=== PATIENT | male | born 1960 | race Caucasian/White ===

== ENCOUNTER 2018-10-15 20:36 | Observation (INO) | payer BC, OTHER ==
--- NOTE | 2018-10-15 21:39 | PDOC.FPRHP ---
- History of Present Illness Chief Complaint: Chest Pain History of Present Illness: Mr Koch is a 58yo male with known CAD presents as [facility] transfer for chest pain that started this evening (1630) when we was moving some water bottles he had bought from the shopping cart to his car. He then drove to a different store down the road and the pain persisted. The pain persisted until he had been in the ED for 15 minutes. The pain felt like a sharp stabbing pain and some numbness and tingling in his L arm. Denies any known history of CHF. Dr. Flowers at [facility] and Dr. Aguilar are his cardiologists. He forgot to take his meds this morning because his pill box was empty. He reports he also thought his sugar may be getting high so he drank 3 bottles of water. BG is usually in the 130s-140s at home. He takes Metformin. ED Course: ASA at [facility] - Allergies/Adverse Reactions Allergies Allergy/AdvReac Type Severity Reaction Status Date / Time No Known Allergies Allergy Verified 10/16/18 00:58 - Home Medications Medication Instructions Recorded Confirmed Type Allopurinol 300 mg PO QAM 10/15/18 10/15/18 History Aspirin [Adult Aspirin] 81 mg PO BID 10/15/18 10/16/18 History Atorvastatin Calcium 80 mg PO HS 10/15/18 10/15/18 History Isosorbide Mononitrate [Imdur] 60 mg PO QAM 10/15/18 10/15/18 History Lisinopril 10 mg PO BID 10/15/18 10/15/18 History Metoprolol Tartrate 25 mg PO BID 10/15/18 10/15/18 History Ranolazine [Ranexa] 1,000 mg PO BID 10/15/18 10/15/18 History metFORMIN [Glucophage] 1,000 mg PO BID 10/15/18 10/15/18 History Fluticasone Propionate [Flonase 1 spray EA NARE DAILY 10/16/18 10/16/18 History Nasal Kennan] [place]-3 Fatty Acids/Fish Oil 2 cap PO BID 10/16/18 10/16/18 History [[place]aines 3 1,000 mg Softgel] glipiZIDE [Glipizide] 5 mg PO DAILY-AC 02/04/19 02/04/19 History - History PMHx: CAD, DMII, HLD, HTN, hx of testicular cancer (2002) s/p chemo/surgical resection, gout PSHx: Testicular, CABG x3 (2006), stent 2014 ([facility]), recent cath at [facility] (09/2018) FHx: Mother - cancer unknown type, Brother - cancer unknown type, Dad - CAD, cancer unknown type Social: Former smoker (quit using dip in July, 50 pk year smoking quit 1 year ago), no alcohol use, denies drug use. , grown children. 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 PCP: Dr. Frances at [facility] - Review of Systems General: reports: fatigue. denies: fever/chills Eyes: denies: eye pain, vision changes ENT: denies: nasal congestion, rhinorrhea Respiratory: denies: cough, shortness of breath Cardiovascular: reports: chest pain. denies: palpitation Gastrointestinal: denies: nausea, vomiting, abdominal pain Genitourinary: reports: other (denies hematuria). denies: dysuria Skin: denies: rashes, lesions Musculoskeletal: reports: tenderness, swelling (intermittently, equal on both sides), arthritis/arthralgias Neurological: reports: other (headaches on and off recently, improve with tylenol and rest, tingling in L arm). denies: weakness - Vital signs BP: 163/76 HR: 84 RR: 18 Tmax: 97.7 Pox: 94% on RA Wt: 123.38kg - Physical Exam Constitutional: NAD, awake, alert and oriented, well developed HEENT: normocephalic and atraumatic, conjunctiva clear, no scleral icterus, grossly normal hearing, MMM, oropharynx clear Neck: supple, trachea midline, no JVD, no bruits Heart: RRR, no murmurs/rubs/gallops, pulses present, no edema Lungs: CTAB, no respiratory distress, no wheezing Abdomen: soft, non-tender, bowel sounds present Musculoskeletal: normal structure, normal tone, ROM grossly normal Neurological: no focal deficit, other (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 Sensation to light touch intact b/l upper extremeties) Skin: capillary refill <2 seconds Psychiatric: normal mood and affect, good judgment and insight, intact recent and remote memory FMR H&P: Results - Labs Result Diagrams: 10/16/18 01:06 - EKG Interpretation EKG: incomplete right bundle branch block, ST, nonspecific ST wave abnormality, T waves, nonspecific T wave abnormality, [place] normal, MI interval 134 ms. QRS duration 102 ms. QT/QTc 406/441 ms. FMR H&P: A/P - Problem List (1) Exertional angina Current Visit: Yes Status: Acute Code(s): I20.8 - OTHER FORMS OF ANGINA PECTORIS (2) Coronary artery disease Current Visit: Yes Status: Acute Code(s): I25.10 - ATHSCL HEART DISEASE OF [place] CORONARY ARTERY W/O ANG PCTRS (3) DM type 2 (diabetes mellitus, type 2) Current Visit: Yes Status: Acute (4) Hx of CABG Current Visit: Yes Status: Acute (5) HTN (hypertension) Current Visit: Yes Status: Acute Code(s): I10 - ESSENTIAL (PRIMARY) HYPERTENSION (6) HLD (hyperlipidemia) Current Visit: Yes Status: Acute Code(s): E78.5 - HYPERLIPIDEMIA, UNSPECIFIED (7) Gout Current Visit: Yes Status: Acute Code(s): M10.9 - GOUT, UNSPECIFIED (8) Hx of testicular cancer Current Visit: Yes Status: Acute Code(s): Z85.47 - PERSONAL HISTORY OF MALIGNANT NEOPLASM OF TESTIS - Plan Mr Koch is a 58yo male with known hx of CAD s/p CABG x3 presenting with typical chest pain Typical chest pain - Initial troponin neg, continue to trend - EKG with known incomplete RBBB, no changes on repeat EKG - HEART score: 6 - Recent cath at [facility] on 09/26, unknown result. Requesting records - EKG for return of chest pain - FLP ordered - NPO for possible stress/cath, then HH - Admit to tele observation DMII - Continue home metformin - Mild SSI - ACHS accuchecks - DM diet - Hypoglycemic protocol CAD s/p CABG x3 - Manage as above HTN - Continue home Lisinopril, metoprolol HLD - Continue Atorvastatin Gout - Continue Allopurinol Hx of testicular cancer - S/p chemo/radiation/surgical Code Status: FULL DVT ppx: Lovenox FMR H&P: Upper Level - Pertinent history 58 yo M with known CAD presents to ED as transfer for typical chest pain. Started while moving groceries earlier tonight. +diaphoresis and tingling in L arm. Stabbing pain. Relieved with nitro. Also felt "woozy" like he does when his sugar is high. Forgot to take meds this morning. - Pertinent findings VS reviewed, CXR report read cardiomegaly, EKG reviewed and shows incomplete RBBB Gen: awake, alert, oriented, obese HEENT: NCAT, conjunctiva non-injected, MMM CV: RRR, no murmur noted RESP: CTAB ABD: soft, NTND EXT: no edema, posterior tibial and BL radial pulses 2+ - Plan Date/Time: 10/15/18 2138 58 yo M with known CAD here with typical chest pain 1. Typical chest pain: Trend trops, admit to tele obs. EKG with known RBBB, no changes on repeat to our ED. HEART score 6. NPO @ [facility] for possible stress vs. cath in a.m. Will request records. 2. T2DM: Continue metformin. Will check a1c. ACHS accuchecks and SSI. 3. CAD s/p CABG: Continue home meds. Holding B-ashely in a.m. 4. HTN: Home meds 5. HLD: Home meds. FLP in a.m. See Dr. Garvin' H&P for remainder of details. I, Karen Michael MD, PGY-3, have evaluated this patient and agree with findings/ plan as outlined by general intern resident. Pertinent changes/additions are listed here. Addendum - Attending - Attending Attestation Date/Time: 10/16/18 6542 I personally evaluated the patient and discussed the management with Dr. Garvin /Alec. I agree with the History, Examination, Assessment and Plan documented above with any addition or exceptions noted below. Patient with CAD and exertional angina here with elevating troponins but normal CKMB suggesting demand ischemia. Will monitor, obtain outside records related to recent cath amd echo, and likely cardiology consult depending on symptoms and clinical course. No need for stress testing since he recently had cath.
[2018-10-15] MEDS ORDERED: Metoprolol Tartrate 25 MG TAB ONE (22:06)
[2018-10-15] MEDS ORDERED: Lisinopril 10 MG TAB ONE (22:06)
[2018-10-15 22:23] LABS: CKMB 3.3 ng/mL (0-6.6)
[2018-10-16 01:24] VITALS: BMI 40.3
[2018-10-16 01:24] LABS: Hemoglobin A1c 6.6 % (4.0-6.0)
[2018-10-16] MEDS ORDERED: Dextrose 5% in Water 1,000 ML IV PRN (01:24)
[2018-10-16] MEDS ORDERED: Dextrose 50% Abboject 50 ML SYRINGE SLOW IVP PRN (01:24)
[2018-10-16] MEDS ORDERED: HumaLOG 300 UNITS/3 ML VIAL SC PRN (01:24)
[2018-10-16 01:35] LABS: Anion Gap 16 mmol/L (10-20); BUN (Urea Nitrogen) 22 mg/dL (8.4-25.7); Calc. Creatinine Clearance 165 mL/min (70-130); Carbon Dioxide 21 mmol/L (22-29); Chloride 106 mmol/L (98-107); Estimated GFR-MDRD 89; Glucose 115 mg/dL (70-105); Potassium 4.1 mmol/L (3.5-5.1); Sodium 139 mmol/L (136-145)
--- NOTE | 2018-10-16 05:50 | PDOC.FM ---
- Subjective Subjective: Pt resting in bed. Denies any acute events overnight. Denies any recent chest pain or SOB. Denies any fever or chills. Stephen any dizziness or lightheadness. Denies any numbness or tingling. Denies any vision changes. Denies any n/v/d/c. - Objective MAR Reviewed: Yes Vital Signs & Weight: Vital Signs (12 hours) Temp Pulse Resp BP Pulse Ox 10/16/18 03:50 75 18 132/84 98 10/16/18 00:28 98.4 F 65 18 130/69 98 Weight Weight 127.505 kg Result Diagrams: 10/16/18 06:39 10/16/18 05:44 EKG Reviewed by me: Yes (Sinus brenda this am) Phys Exam - Physical Examination Constitutional: NAD HEENT: PERRLA, moist MMs Neck: no nodes, supple, full ROM Respiratory: no wheezing, no rhonchi, clear to auscultation bilateral Cardiovascular: RRR, no significant murmur Gastrointestinal: soft, no distention, positive bowel sounds Musculoskeletal: no edema, pulses present Neurological: non-focal, normal sensation, moves all 4 limbs Lymphatic: no nodes Psychiatric: normal affect, A&O x 3 Skin: no rash, normal turgor, cap refill <2 seconds Dx/Plan (1) Coronary artery disease Code(s): I25.10 - ATHSCL HEART DISEASE OF [place] CORONARY ARTERY W/O ANG PCTRS Status: Acute (2) DM type 2 (diabetes mellitus, type 2) Status: Acute (3) HLD (hyperlipidemia) Code(s): E78.5 - HYPERLIPIDEMIA, UNSPECIFIED Status: Acute (4) HTN (hypertension) Code(s): I10 - ESSENTIAL (PRIMARY) HYPERTENSION Status: Acute (5) Hx of CABG Status: Acute (6) Hx of testicular cancer Code(s): Z85.47 - PERSONAL HISTORY OF MALIGNANT NEOPLASM OF TESTIS Status: Acute - Plan Plan: Typical chest pain - Troponin continue to trend upwards. Last trop above .3 -Started on Therapeutic lovenox - EKG with known incomplete RBBB, no changes on repeat EKG. Sinus brenda on monitor this AM -Will consult Cardiology- Dr. Erwin. follow recs. - Recent cath at [facility] on 09/26, unknown result. Requesting records - NPO for possible stress/cath, then HH - Admit to tele observation DMII - Continue home metformin - Mild SSI - ACHS accuchecks - DM diet - Hypoglycemic protocol CAD s/p CABG x3 - Manage as above HTN - Continue home Lisinopril, metoprolol HLD - Continue Atorvastatin Gout - Continue Allopurinol Hx of testicular cancer - S/p chemo/radiation/surgical Addendum - Attending - Attending Attestation Date/Time: 10/16/18 1123 I personally evaluated the patient and discussed the management with Dr. Jaramillo. I agree with the History, Examination, Assessment and Plan documented above with any addition or exceptions noted below. Starting th. lovenox with positive trops but suspect myocardial demand ischemia as opposed to true ACS. Will consult cardiology and obtain records this morning from his recent echo/cath. Further mgmt per those results and Cardiology recs. May be only a medication mgmt candidate based on his reported history of graft failure/stenosis. No active chest pain and no telemetry changes.
[2018-10-16 06:22] LABS: Anion Gap 16 mmol/L (10-20); BUN (Urea Nitrogen) 19 mg/dL (8.4-25.7); Calc. Creatinine Clearance 148 mL/min (70-130); Calcium 8.9 mg/dL (7.8-10.44); Carbon Dioxide 20 mmol/L (22-29); Cardiac Risk 5.9 (Less than 4.5); Chloride 106 mmol/L (98-107); Cholesterol 189 mg/dl (< 200 Desired); Estimated GFR-MDRD 79; Glucose 150 mg/dL (70-105); HDL Cholesterol 32 mg/dL (>60 Neg Risk); Potassium 4.3 mmol/L (3.5-5.1); Sodium 138 mmol/L (136-145); Triglycerides 418 mg/dL (Less than 150)
[2018-10-16] MEDS ORDERED: Enoxaparin Sodium 30 MG/0.3 ML SYRINGE SC SCH (06:45)
[2018-10-16] MEDS ORDERED: Enoxaparin Sodium 30 MG/0.3 ML SYRINGE IVP SCH (06:45)
[2018-10-16 06:54] LABS: #Eosinphils 0.2 thou/uL (0.0-0.7); #Lymphocytes 1.9 thou/uL (1.20-3.40); #Monocytes 0.7 thou/uL (0.11-0.59); #Neutrophils 4.6 thou/uL (1.40-6.50); %Basophils 0.1 % (0.0-1.0); %Eosinophils 3.1 % (0.0-10.0); %Lymphocytes 25.2 % (21.0-51.0); %Monocytes 9.6 % (0.0-10.0); Hemoglobin 13.6 g/dL (14.0-18.0); Mean Corpuscular HGB CONC 34.4 g/dL (32.0-36.0); Mean Corpuscular Hemoglobin 32.1 pg (27.0-31.0); Mean Corpuscular Volume 93.2 fL (78.0-98.0); Mean Platelet Volume 6.9 fL (7.4-10.4); Platelet Count 247 thou/uL (130-400); RBC Distribution Width 13.2 % (11.5-14.5); Red Blood Cell (RBC) Count 4.25 mill/uL (4.70-6.10); White Blood Cell (WBC) Count 7.5 thou/uL (4.8-10.8)
[2018-10-16 07:00] LABS: PTT 25.3 SEC (22.9-36.1); Prothrombin Time 13.2 SEC (12.0-14.7)
[2018-10-16 07:20] LABS: Troponin I 0.265 ng/mL (< 0.028)
[2018-10-16] MEDS ORDERED: Enoxaparin Sodium 60 MG/0.6 ML SYRINGE SC SCH ×2 (07:45→21:00)
[2018-10-16] MEDS ORDERED: Enoxaparin Sodium 40 MG/0.4 ML SYRINGE SC SCH (09:00)
[2018-10-16] MEDS: Lisinopril 10 MG TAB PO SCH ×2 (09:41→21:21)
[2018-10-16] MEDS: Enoxaparin Sodium 120 MG/0.8 ML SYRINGE SC SCH ×2 (09:42→21:21)
[2018-10-16] MEDS: Aspirin 81 mg Enteric Coated Tablet PO SCH (09:42)
[2018-10-16] MEDS: Allopurinol 300 MG TAB PO SCH (09:42)
[2018-10-16] MEDS: metFORMIN 500 MG TAB PO SCH ×2 (09:44→21:20)
[2018-10-16 13:38] LABS: Hemoglobin 13.5 g/dL (14.0-18.0); Platelet Count 286 thou/uL (130-400)
[2018-10-16] MEDS ORDERED: Atorvastatin Calcium 40 MG TAB PO SCH (21:00)
--- NOTE | 2018-10-17 00:51 | CON ---
DATE OF CONSULTATION: HISTORY OF PRESENT ILLNESS: Franc Koch is a 58-year-old white male, who apparently is usually followed by Dr. Aguilar; however, he recently underwent cardiac evaluation in [place] in [place]. In 2006, he underwent CABG. He apparently has undergone multiple nuclear scans by Dr. Aguilar and once underwent catheterization and some type of intervention. Then on September 14, 2018, he underwent treadmill testing in [place] in [place] for [employer]. He had [address]-segment depression in 5 leads which persisted for greater than 10 minutes. Then on September 20, 2018, he underwent cardiac catheterization via the right radial approach. There was a 50% left main. The proximal LAD had a 60% stenosis and was there was a total occlusion of the mid LAD. The first diagonal had a 20% stenosis. Circumflex had 40% proximal stenosis and the first obtuse marginal had a 20% stenosis. Right coronary artery was not engaged and was known to be totally occluded and apparently filled retrograde from both the LAD and the circumflex via collaterals. Bypass grafts revealed patent SALCEDO to the mid LAD which was a small diffusely diseased vessel. It was previously known that saphenous vein graft to distal right coronary artery and to the first obtuse marginal were occluded in 2016. It was felt best to continue to treat him medically. He has been doing well, but yesterday morning forgot to take his morning medicines. At approximately 4 p.m., he was lifting cases of water from his shopping cart into his car and started having chest pressure and pain. He rested in his car, but the pain continued. Ultimately went to the emergency room in [place]. He states that the total duration of the pain was approximately 30 minutes. He had mild shortness of breath. There is no diaphoresis, nausea, or vomiting. PAST MEDICAL HISTORY: Remarkable for coronary artery disease, diabetes, hypertension, hyperlipidemia, history of testicular cancer with chemo and surgical resection. PAST SURGICAL HISTORY: Orchidectomy, CABG x3 in 2006, stent [place] [address] Aguilar. MEDICATIONS: 1. Allopurinol 300 q.a.m. 2. Aspirin 81 b.i.d. 3. Atorvastatin 80 at bedtime. 4. Glipizide 5 mg daily. 5. Flonase nasal spray. 6. Isosorbide mononitrate 60 mg q.a.m. 7. Lisinopril 10 mg b.i.d. 8. Metformin 1000 mg b.i.d. 9. Metoprolol 25 mg b.i.d. 10. [place]-3 2000 mg b.i.d. 11. Ranexa 1000 mg b.i.d. ALLERGIES: NONE. SOCIAL HISTORY: Smoked 2 packs per day, but stopped 5 years ago. FAMILY HISTORY: Negative for coronary artery disease. REVIEW OF SYSTEMS: A 10-point review of systems is unremarkable. PHYSICAL EXAMINATION: VITAL SIGNS: Blood pressure 129/69, pulse of 73. HEENT: PERRL. NECK: Supple. CHEST: Clear. CARDIAC: S1 and S2 normal without any S3, S4, or murmurs. ABDOMEN: Obese. Normal bowel sounds. No tenderness. EXTREMITIES: Revealed no clubbing, cyanosis, or edema. NEUROLOGIC: Grossly intact. SKIN: Warm and dry. LABORATORY DATA: EKG revealed normal sinus rhythm with incomplete right bundle branch block, nonspecific ST and T wave changes. Hemoglobin 13.5, hematocrit 40.4, platelets 286,000. INR 1.0. Sodium 138, potassium 4.3, chloride 106, carbon dioxide 20, BUN 19, creatinine 0.9. Cholesterol 189, triglycerides 418, HDL 32 , LDL could not be determined. TSH is normal. Troponin I is 0.350. IMPRESSION: 1. Small [id number] myocardial infarction secondary to noncompliance with medications. From his known anatomy from catheterization 1 month ago, it would be understandable that he would have a prolonged chest discomfort if he was not taking his medications. We discussed the importance of taking medications as recommended. 2. Hypertension. 3. Diabetes. 4. Hypercholesterolemia-poor control with significantly elevated triglycerides. 5. Former smoker. PLAN: With Mr. Koch undergoing cardiac catheterization 1 month ago, which again revealed 2 of his 3 bypass grafts to be occluded and severe disease distal to the SALCEDO insertion, it would be understandable that if he did not take his medications, he would probably have chest pain. I would restart his medications as you are doing, have him ambulate in the halls. If he does not have any further significant symptoms that I feel he may be discharged tomorrow. Job ID: [id number] [facility]
--- NOTE | 2018-10-17 06:25 | PDOC.FM ---
- Subjective Subjective: Pt doing well this morning. Denies any acute events overnight. Denies any recent chest pain or SOB. Pt denies any dizziness, headaches or lightheadness. reports being ready to go home at this time - Objective MAR Reviewed: Yes Vital Signs & Weight: Vital Signs (12 hours) Temp Pulse Resp BP BP Pulse Ox 10/16/18 21:21 132/84 10/16/18 19:38 97.7 F 74 16 110/57 L 94 L Weight Weight 127.505 kg I&O: 10/15/18 10/16/18 10/17/18 06:59 06:59 06:59 Intake Total 850 Balance 850 Result Diagrams: 10/16/18 13:20 10/16/18 13:20 EKG Reviewed by me: Yes (Sinus at this time) Radiology Reviewed by me: Yes (No new imgaging) Phys Exam - Physical Examination Constitutional: NAD HEENT: PERRLA, moist MMs Neck: no nodes, supple, full ROM Respiratory: no wheezing, no rales, no rhonchi, clear to auscultation bilateral Hard to auscultate due to body habitus Cardiovascular: RRR, no significant murmur, no rub Gastrointestinal: soft, non-tender, no distention, positive bowel sounds Musculoskeletal: no edema, pulses present Neurological: non-focal, moves all 4 limbs Lymphatic: no nodes Psychiatric: normal affect Skin: no rash, normal turgor, cap refill <2 seconds Dx/Plan (1) NSTEMI (non-ST elevated myocardial infarction) Code(s): I21.4 - NON-ST ELEVATION (NSTEMI) MYOCARDIAL INFARCTION Status: Acute (2) Coronary artery disease Code(s): I25.10 - ATHSCL HEART DISEASE OF [place] CORONARY ARTERY W/O ANG PCTRS Status: Acute (3) DM type 2 (diabetes mellitus, type 2) Status: Acute (4) HLD (hyperlipidemia) Code(s): E78.5 - HYPERLIPIDEMIA, UNSPECIFIED Status: Acute (5) HTN (hypertension) Code(s): I10 - ESSENTIAL (PRIMARY) HYPERTENSION Status: Acute (6) Hx of CABG Status: Acute (7) Hx of testicular cancer Code(s): Z85.47 - PERSONAL HISTORY OF MALIGNANT NEOPLASM OF TESTIS Status: Acute - Plan Plan: NSTEMI - Slight bump in Troponin yesterday. Trended back down. Likely due to medication noncomplaince -Started on Therapeutic lovenox Cardiology- Dr. Erwin. follow recs. No new chest pain. Pt likely can go home. Counseled on medication compliance. - Recent cath at [facility] on 09/26, records recieved and reviewed. DMII - Continue home metformin - Mild SSI - ACHS accuchecks - DM diet - Hypoglycemic protocol CAD s/p CABG x3 - Manage as above HTN - Continue home Lisinopril, metoprolol HLD - Continue Atorvastatin Gout - Continue Allopurinol Hx of testicular cancer - S/p chemo/radiation/surgical Addendum - Attending - Attending Attestation Date/Time: 10/17/18 9809 I personally evaluated the patient and discussed the management with Dr. Jaramillo. I agree with the History, Examination, Assessment and Plan documented above with any addition or exceptions noted below. Patient with no continued chest pain. Diagnosis is mild NSTEMI due to medical noncompliance. Evaluated by cardiology and cleared for discharge if pain free. 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
[2018-10-17 08:13] VITALS: BP 141/73; TEMP 97.3
[2018-10-17] MEDS: Lisinopril 10 MG TAB PO SCH (10:15)
[2018-10-17] MEDS: Allopurinol 300 MG TAB PO SCH (10:15)
[2018-10-17] MEDS: metFORMIN 500 MG TAB PO SCH (10:15)
[2018-10-17] MEDS: Enoxaparin Sodium 120 MG/0.8 ML SYRINGE SC SCH (10:16)
[2018-10-17] MEDS: Aspirin 81 mg Enteric Coated Tablet PO SCH (10:16)
--- NOTE | 2018-10-18 11:55 | DIS ---
DATE OF ADMISSION: 10/15/2018 DATE OF DISCHARGE: 10/17/2018 RESIDENT: Hoang Jaramillo MD, PGY-2. CONSULTS: Include Cardiology, Dr. Tonny Erwin. IMAGING: No imaging. PROCEDURE: None. PRIMARY DIAGNOSES: 1. Non ST-elevation myocardial infarction. 2. Diabetes mellitus type 2. 3. Coronary artery disease, status post CABG x3. 4. Hypertension. 5. Hyperlipidemia. 6. Gout. 7. History of testicular cancer. DISCHARGE MEDICATIONS: 1. Allopurinol 300 mg p.o. q.a.m. 2. Aspirin 81 mg p.o. b.i.d. 3. Atorvastatin 80 mg at bedtime. 4. Fluticasone Flonase nasal spray, one spray each naris daily. 5. Glipizide 5 mg p.o. daily before meals. 6. Imdur 60 mg p.o. q.a.m. 7. Lisinopril 10 mg p.o. b.i.d. 8. Metformin 1000 mg p.o. b.i.d. 9. Metoprolol 25 mg p.o. b.i.d. 10. [place]-3 fatty acid 2 tablets p.o. b.i.d. 11. Ranexa 1000 mg p.o. b.i.d. HISTORY OF PRESENT ILLNESS/BRIEF HOSPITAL COURSE: This is a 58-year-old male, who has a known coronary artery disease, stated that he started having chest pain when he was moving some water. Pain persisted, felt like a sharp stabbing pain. The patient recently had a catheterization at the [place] on 09/26, did not know the results of the date of admission. At this time, we admitted him and followed his troponins. His troponins would bump from 0.234 to 0.329 to 0.35, back down to 0.26, this time having an NSTEMI. We did not see anything on EKG. We consulted Dr. Erwin for this, who found out that the patient had not taken his medications the day prior and prior to this attack. We got the records from the [place], which showed that he had 2 blockages already in two dilated-free vessels of his CABG. At this time, Dr. Erwin recommended no other therapy to be done. Troponin trended down. We watched him for a couple of days. The patient did not have any more chest pain once being started on his medications. 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 I gave him the ER precautions. I also cautioned him to return if ever had the chest pain again, likely had NSTEMI as he was not taking his medications. DISPOSITION: Stable. DISCHARGE LOCATION: Home. ACTIVITY: As tolerated. DIET: Heart healthy diet. FOLLOWUP: Will need to follow up with his primary care doctor within 14 days for hospital followup. Job ID: [id number]
--- NOTE | 2018-10-21 16:00 | EKG ---
Test Reason : CHEST PAIN Blood Pressure : / mmHG Vent. Rate : 071 BPM Atrial Rate : 071 BPM P-R Int : 134 ms QRS Dur : 102 ms QT Int : 406 ms P-R-T Axes : 032 043 077 degrees QTc Int : 441 ms Normal sinus rhythm Incomplete right bundle branch block Nonspecific ST and T wave abnormality Abnormal ECG Confirmed by MARYBETH RASMUSSEN ([id number]), editor index RYAN MARQUEZ ([id number]) on 10/21/2018 3:59:45 PM Referred By: Confirmed By:MARYBETH RASMUSSEN
== END 2018-10-17 10:36 | disposition home or self-care (01) ==
LOC: ERS 20:36 → 2SW 21:29
PROVIDERS: ADMIT Student in an Organized Health Care Education/Training Program; ATTEND Student in an Organized Health Care Education/Training Program
DX: I21.4 Non-ST elevation (NSTEMI) myocardial infarction (principal); I25.118 Atherosclerotic heart disease of native coronary artery with other forms of angina pectoris; I45.10 Unspecified right bundle-branch block; E11.9 Type 2 diabetes mellitus without complications; I10 Essential (primary) hypertension; E78.00 Pure hypercholesterolemia, unspecified; E78.5 Hyperlipidemia, unspecified; M10.9 Gout, unspecified; Z85.47 Personal history of malignant neoplasm of testis; Z87.891 Personal history of nicotine dependence; Z79.51 Long term (current) use of inhaled steroids; Z79.82 Long term (current) use of aspirin; Z79.84 Long term (current) use of oral hypoglycemic drugs; Z79.899 Other long term (current) drug therapy; Z91.14 Patient's other noncompliance with medication regimen; Z95.1 Presence of aortocoronary bypass graft
CPT/HCPCS: 36415; 36416; 80048; 80061; 82553; 83036; 84443; 84484; 85025; 85610; 85730; 93005; 96372; G0378; J1650

== ENCOUNTER 2019-03-12 12:48 | Inpatient (IN) | payer OTHER, BC ==
[2019-03-12] MEDS ORDERED: Ondansetron PF 4 MG/2 ML Vial ONE (13:05)
[2019-03-12] MEDS ORDERED: Morphine 4 MG/ML VIAL ONE (13:05)
--- NOTE | 2019-03-12 13:39 | CT ---
CT Head without IV contrast COMPARISON: None. HISTORY: Syncope. Patient fell landing on right side next truck. TECHNIQUE: Axial CT imaging at 5 mm intervals from vertex through skull base without contrast FINDINGS: There is no evidence of an acute infarction, hemorrhage, mass effect, or midline shift. There are sca ttered areas of diminished attenuation in the periventricular white matter which is nonspecific but likely attributable to chronic small vessel ischemic changes. Low-density areas seen in the posterior aspect left external capsule likely related to remote ischemic event. There is mild cerebral volume loss. The ventricular system is normal in size, shape, and position for the degree of sulcal a trophy. Small mucous retention cyst is present in the left maxillary antrum. The remainder of the visualized paranasal sinuses and mastoid air cells are clear. Osseous structures appear intact. IMPRESSION: 1. No acute intracranial abnormality demonstrated. additional findings
--- NOTE | 2019-03-12 13:52 | RAD ---
Exam: Chest one view HISTORY:Syncopal episode. Comparison: 03/31/2014 FINDINGS: Cardiac silhouette:Normal heart size. Stable sternotomy changes. Pulmonary vessels: Upper normal Costophrenic angles: Right costophrenic angle is excluded. Left costophrenic angle is clear LUNGS: No masses or consolidation. No pneumothorax or osseous abnormalities. Pneumothorax: None Osseous abnormalities: None IMPRESSION: Mild pulmonary vascular prominence. Correlate for volume overload.
--- NOTE | 2019-03-12 13:55 | CT ---
CT lumbar spine without contrast: HISTORY: Patient found lying on right side of truck after syncopal episode. Patient complaining of low back pa in. COMPARISON: No prior CT exams of the lumbar spine available FINDINGS: Vascular calcifications are seen in the abdominal aorta and involving the iliac arteries. There is a compression fracture involving the superior endplate of the L1 vertebral body with fractur e extending through the anterior superior endplate of the L1 vertebral body which is slightly displaced anteriorly and mildly comminuted. The degree of height loss is less than 20%. Remaining emilia tebral body heights are within normal limits, and no additional fracture seen. There is no evidence of a subluxation. T12-L1 level: There is mild posterior osteophyte formation without significant central spinal canal o r neural foramina. L1-2: There is no significant disc bulge or disc herniation. Central spinal canal and neural foramina are patent. Mild facet degenerative changes are seen L2-3: There is a mild disc osteophyte complex resulting in mild narrowing of the central spinal canal . The neural foramina are patent. Facet degenerative changes are present. L3-4: There is a broad-based disc osteophyte complex with moderate to severe facet hypertrophic oglesby es and ligamentous thickening. There is resultant severe narrowing of the central spinal canal. There is also narrowing of the lateral recesses at this level. Mild bilateral neural foraminal narrow ing is present. L4-5: There is a broad-based disc osteophyte complex. Moderate to severe facet hypertrophic changes a nd ligamentous thickening are present. Moderate narrowing of the central spinal canal is noted. There is moderate left and mild right-sided neural foraminal narrowing. L5-S1: There is no significant disc bulge or disc herniation. Central spinal canal and neural foramin a are patent. Mild facet degenerative changes are seen. IMPRESSION: 1. Mildly comminuted compression fracture superior endplate L1 vertebral body which appears to repres ents a more acute fracture. 2. Multilevel degenerative changes.
--- NOTE | 2019-03-12 13:56 | CT ---
Exam: CT thoracic spine without contrast HISTORY: Syncope. Fall. Pain. Comparison none FINDINGS: Nonspecific, nonenlarged mediastinal lymph nodes. Atherosclerosis of a nonaneurysmal aorta. Coronary artery calcifications. Calcification of the mitral annulus Limited evaluation the solid organs due to technique. Nonobstructing calculi measuring 1 to 2 mm in t he right renal pelvis No paraspinal mass, lymphadenopathy or hematoma. There are 12 thoracic type vertebra. Vertebral body height is maintained. No fracture. No malalignmen t. Multilevel degenerative disc disease. No evidence of high-grade central canal stenosis. Throughout The thoracic spine, the neural foramina are patent. L1 compression fracture is noted. Refe r to lumbar spine report for further detail. IMPRESSION: 1. No thoracic spine fracture. 2. L1 compression fracture. Refer to separate lumbar spine CT report.
[2019-03-12 13:57] LABS: #Eosinphils 0.1 thou/uL (0.0-0.7); #Lymphocytes 1.5 thou/uL (1.20-3.40); #Monocytes 0.7 thou/uL (0.11-0.59); #Neutrophils 8.2 thou/uL (1.40-6.50); %Basophils 0.1 % (0.0-1.0); %Lymphocytes 14.1 % (21.0-51.0); %Monocytes 6.3 % (0.0-10.0); %Neutrophils 78.6 % (42.0-75.0); Hemoglobin 12.7 g/dL (14.0-18.0); Mean Corpuscular HGB CONC 34.3 g/dL (32.0-36.0); Mean Corpuscular Hemoglobin 31.3 pg (27.0-31.0); Mean Platelet Volume 7.1 fL (7.4-10.4); Platelet Count 245 thou/uL (130-400); RBC Distribution Width 13.1 % (11.5-14.5); Red Blood Cell (RBC) Count 4.07 mill/uL (4.70-6.10); White Blood Cell (WBC) Count 10.5 thou/uL (4.8-10.8)
[2019-03-12 14:19] LABS: ALT (SGPT) 36 U/L (8-55); AST (SGOT) 26 U/L (5-34); Albumin 4.4 g/dL (3.5-5.0); Alkaline Phosphatase 40 U/L (40-150); Anion Gap 13 mmol/L (10-20); BUN (Urea Nitrogen) 23 mg/dL (8.4-25.7); Bilirubin, Total 0.5 mg/dL (0.2-1.2); Calc. Creatinine Clearance 0 mL/min (70-130); Calcium 9.7 mg/dL (7.8-10.44); Carbon Dioxide 21 mmol/L (22-29); Chloride 106 mmol/L (98-107); Estimated GFR-MDRD 74; Globulin 2.4 g/dL (2.4-3.5); Glucose 170 mg/dL (70-105); Potassium 4.3 mmol/L (3.5-5.1); Protein, Total 6.8 g/dL (6.0-8.3); Sodium 136 mmol/L (136-145)
[2019-03-12 17:34] LABS: Bilirubin Negative (Negative); Blood, Urine Negative (Negative); Clarity CLEAR (Clear); Glucose, Urine (Dipstick) 100 mg/dL (Negative); Leukocyte Negative (Negative); Nitrite Negative (Negative); Protein, Urine (Dipstick) Negative (Neg-Trace); Urobilinogen 0.2 mg/dL (0.2-1.0)
[2019-03-12 17:45] LABS: Amphetamine Not Detected (NotDetected); Barbiturates Screen Not Detected (NotDetected); Benzodiazepine Screen Not Detected (NotDetected); Cocaine Metabolite Screen Not Detected (NotDetected); Medtox Control Line Valid? VALID (VALID); Medtox Reader # READER 4; Methadone Not Detected (NotDetected); Methamphetamine Not Detected (NotDetected); Opiate Screen Detected (NotDetected); Oxycodone Screen Not Detected (NotDetected); Phencyclidine (PCP) Not Detected (NotDetected); THC/Cannabinoid Screen Not Detected (NotDetected); Tricyclic Screen Not Detected (NotDetected)
[2019-03-12] MEDS ORDERED: HYDROcodone/Acetaminophen 7.5/325 mg Tablet ONE (19:29)
[2019-03-12] MEDS ORDERED: Senokot S 8.6-50 MG TAB PO PRN (20:15)
[2019-03-12] MEDS ORDERED: Acetaminophen 325 MG TAB PO PRN (20:15)
[2019-03-12] MEDS ORDERED: Dextrose 50% Abboject 50 ML SYRINGE SLOW IVP PRN (20:28)
[2019-03-12] MEDS ORDERED: Dextrose 5% in Water 1,000 ML IV PRN (20:28)
[2019-03-12 22:34] VITALS: BMI 39.4
[2019-03-12] MEDS: HYDROcodone/Acetaminophen 7.5/325 mg Tablet PO PRN (23:28)
[2019-03-12] MEDS: Heparin 5,000 UNITS/ML VIAL SC SCH (23:28)
--- NOTE | 2019-03-13 02:21 | HP ---
CHIEF COMPLAINT: Lightheadedness/syncope. HISTORY OF PRESENT ILLNESS: The patient is a 58-year-old male with a history of CAD status post bypass in 2006, also has a history of hypertension, who presents to the hospital with complaints of episode. The patient stated that two weeks ago, he was started on a new medication which is hydrochlorothiazide due to increased lower extremity edema and some shortness of breath. The patient stated that today early in the morning, he got out of his truck and was doing some work with his chains. He bent down over to [employer] one of the hooks and when he stood up to hook the top part of the cage, the patient felt very unsteady and felt a lightening and then passed out. The patient recalled the EMS trying to put him on a stretcher to bring him to the ER for further evaluation. The patient denies any diaphoresis or any nausea, vomiting, or any palpations before the event. PAST MEDICAL HISTORY: Hypertension, diabetes, and hyperlipidemia. PAST SURGICAL HISTORY: CABG in 2006. He has a history of testicular cancer with 20 treatments of radiation and a right orchiectomy. He has also had hernia surgery. SOCIAL HISTORY: He denies any alcohol use. He dips, however, stopped about 8 months and now back on dipping. He is a full code. Lives with his . No drug use. REVIEW OF SYSTEMS: All negative except for the ones mentioned above in the HPI. FAMILY HISTORY: Mother had a history of breast cancer and other cancer, at the age of 62. Father is still alive. MEDICATIONS: He takes: 1. Hydrochlorothiazide. 2. Metformin. 3. Glipizide. He does not recall the doses of the other medications. ALLERGIES: HE HAS NO KNOWN DRUG ALLERGIES. LABORATORY RESULTS: As of the following; WBC of 10.5, hemoglobin of 12.7, hematocrit of 37.1, platelets of 245. Sodium of 136, potassium of 4.3, BUN of 23, creatinine 1.03, glucose of 170. His lactic acid is 2.9 and repeat is 2.0. His troponin x2 are negative. He did have a CT head, which did not show any acute abnormalities. He did have a CT lumbar and thoracic spine, which indicated mild comminuted compression fracture to the endplate of L1 vertebrae body, which appears to be more acute in process. PHYSICAL EXAMINATION: VITAL SIGNS: Temperature of 97.5, 98% on room air, 20, 84 heart rate, 120/60. GENERAL: He is awake, alert, oriented x3. Does not appear in distress. HEENT: Normocephalic, atraumatic. No lymphadenopathy noted. Pupils are equal and reactive to light. CV: S1 and S2 present. No murmurs, rubs, or gallops. ABDOMEN: Soft and nontender. Bowel sounds are present x2. EXTREMITIES: No edema. Pedal pulses are present x2. LUNGS: Clear to auscultation. No rhonchi or wheezes noted. NEUROVASCULAR: No focal deficits noted. SKIN: No cuts, lesions or bruises noted. Lower back, he has some pain on palpation to his lumbar area. ASSESSMENT AND PLAN: The patient is a 58-year-old male, who presents to the hospital after syncopal episode. 1. Syncope, could be possible secondary to orthostatic versus dehydration versus cardiac in nature. Given his cardiac history, I will do an echocardiogram and also have carotid Dopplers. We will continue to trend his troponins, which so far negative. We will also check orthostatics on this patient. The patient stated that prior to leaving the home, his blood pressure was 120/60. The patient then took hydrochlorothiazide, I do not know how much he takes. The patient does not recall the dose that could be contributing to his dizziness and syncopal episode which could be positional. 2. L1 vertebral comminuted fracture. The patient was seen by Surgery. No current intervention. However, the patient will require brace. I have educated the patient that if he starts having any symptoms of weakness or bowel and bladder incontinence, to let notify the nurse. He does have at baseline some tingling to his bilateral lower feet and bilateral hand area. 3. Diabetes. We will check a hemoglobin A1c. We will continue his medications. 4. History of hypertension. We will hold off on some of his medications for now though his blood pressure is more stabilized. 5. Deep venous thrombosis prophylaxis. I will put the patient on some SCDs and/or heparin. Job ID: [id number]
[2019-03-13] MEDS: HYDROcodone/Acetaminophen 7.5/325 mg Tablet PO PRN ×3 (05:53→18:51)
[2019-03-13 06:26] LABS: #Eosinphils 0.2 thou/uL (0.0-0.7); #Lymphocytes 1.6 thou/uL (1.20-3.40); #Monocytes 0.6 thou/uL (0.11-0.59); #Neutrophils 4.3 thou/uL (1.40-6.50); %Basophils 0.4 % (0.0-1.0); %Eosinophils 2.7 % (0.0-10.0); %Lymphocytes 24.3 % (21.0-51.0); %Monocytes 8.3 % (0.0-10.0); %Neutrophils 64.3 % (42.0-75.0); Hemoglobin 12.9 g/dL (14.0-18.0); Mean Corpuscular HGB CONC 33.7 g/dL (32.0-36.0); Mean Corpuscular Hemoglobin 31.2 pg (27.0-31.0); Mean Corpuscular Volume 92.5 fL (78.0-98.0); Mean Platelet Volume 6.9 fL (7.4-10.4); Platelet Count 249 thou/uL (130-400); RBC Distribution Width 13.2 % (11.5-14.5); Red Blood Cell (RBC) Count 4.13 mill/uL (4.70-6.10); White Blood Cell (WBC) Count 6.6 thou/uL (4.8-10.8)
[2019-03-13 07:09] LABS: Anion Gap 14 mmol/L (10-20); BUN (Urea Nitrogen) 15 mg/dL (8.4-25.7); Calc. Creatinine Clearance 143 mL/min (70-130); Calcium 9.2 mg/dL (7.8-10.44); Carbon Dioxide 24 mmol/L (22-29); Chloride 104 mmol/L (98-107); Estimated GFR-MDRD 78; Glucose 139 mg/dL (70-105); Potassium 4.1 mmol/L (3.5-5.1); Sodium 138 mmol/L (136-145)
[2019-03-13] MEDS ORDERED: ISOVUE-370 76%-LOCM 1 ML ONE (07:58)
[2019-03-13] MEDS: Heparin 5,000 UNITS/ML VIAL SC SCH ×3 (09:24→20:49)
[2019-03-13] MEDS ORDERED: Famotidine 20 MG TAB PO SCH (10:39)
[2019-03-13] MEDS ORDERED: Dexamethasone 10 MG/ML VIAL SLOW IVP SCH (10:45)
--- NOTE | 2019-03-13 11:33 | ULT ---
CAROTID ULTRASOUND: HISTORY: Syncope. COMPARISON: None. TECHNIQUE: Monsivais scale, color flow, Doppler imaging, and spectral waveform analysis was performed of the carotid and vertebral arteries. FINDINGS: RIGHT CAROTID: There is a combination of calcified and noncalcified plaque in the carotid bifurcation and proximal i nternal carotid artery. Peak systolic velocity of the common carotid artery is 133.2 cm/s. Peak sys tolic velocity of the internal carotid artery is 325.8 cm/s. Systolic ICA to CCA ratio is 2.5. LEFT CAROTID: There is atherosclerotic disease with a combination of calcified and noncalcified plaque in the proxi mal and mid common carotid artery as well as the carotid bifurcation proximal internal carotid artery . Peak systolic velocity of the common carotid artery is 124.7 cm/s. Peak systolic velocity of the internal carotid artery is 122.8 cm/s. Systolic ICA to CCA ratio is 1.0. Antegrade flow in bilateral vertebral arteries. IMPRESSION: Sonographic evidence of severe (greater than 70%) stenosis involving the right internal carotid arter y. Further evaluation with CT angiogram of the neck is recommended. POS: OFF
[2019-03-13] MEDS ORDERED: Morphine 2 MG/ML SYRINGE SLOW IVP SCH (12:00)
--- NOTE | 2019-03-13 13:57 | PDOC.PN ---
- Subjective Encounter Start Date: 03/13/19 Encounter Start Time: 10:30 Subjective: pt feels better but has pain to his back - Objective Resuscitation Status - Order Detail: 03/12/19 20:15 Resuscitation Status Routine Resuscitation Status: FULL: Full Resuscitation Vital Signs & Weight: Vital Signs (12 hours) Temp Pulse Resp BP Pulse Ox 03/13/19 11:28 97.7 F 69 20 143/68 H 94 L 03/13/19 07:42 97.4 F L 73 20 109/58 L 94 L 03/13/19 05:55 66 135/63 03/13/19 03:36 98 F 78 15 113/59 L 94 L Weight Weight 274 lb 9.6 oz I&O: 03/12/19 03/13/19 03/14/19 06:59 06:59 06:59 Intake Total 240 Output Total 500 Balance -260 Result Diagrams: 03/13/19 05:48 03/13/19 05:48 Additional Labs: Accuchecks 03/13/19 03/13/19 03/12/19 11:00 05:38 23:23 POC Glucose 174 H 161 H 255 H Phys Exam - Physical Examination Neck: no nodes, no JVD, supple, full ROM Respiratory: no wheezing, no rales, no rhonchi, wheezing present, clear to auscultation bilateral Cardiovascular: RRR, no significant murmur, no rub, gallop, irregular Gastrointestinal: soft, non-tender, no distention, positive bowel sounds Dx/Plan (1) Syncope Code(s): R55 - SYNCOPE AND COLLAPSE Status: Acute (2) Coronary artery disease Code(s): I25.10 - ATHSCL HEART DISEASE OF [place] CORONARY ARTERY W/O ANG PCTRS Status: Acute (3) DM type 2 (diabetes mellitus, type 2) Status: Acute (4) Gout Code(s): M10.9 - GOUT, UNSPECIFIED Status: Acute (5) HTN (hypertension) Code(s): I10 - ESSENTIAL (PRIMARY) HYPERTENSION Status: Acute - Plan pt's carotid doppler indicates 70% blockage -: will consult CV surgery. echo pending -: will add steroids for back pain. He will need brace -: PT ordered * . Review of Systems - Review of Systems Respiratory: negative: Cough, Dry, Shortness of Breath, Hemoptysis, SOB with Excertion, Pleuritic Pain, Sputum, Wheezing Cardiovascular: negative: chest pain, palpitations, orthopnea, paroxysmal nocturnal dyspnea, edema, light headedness, other Gastrointestinal: negative: Nausea, Vomiting, Abdominal Pain, Diarrhea, Constipation, Melena, Hematochezia, Other Musculoskeletal: Back Pain - Medications/Allergies Allergies/Adverse Reactions: Allergies Allergy/AdvReac Type Severity Reaction Status Date / Time No Known Allergies Allergy Verified 03/12/19 22:34 Medications: Current Medications Acetaminophen (Tylenol) 650 mg PO Q4H PRN PRN Reason: Headache/Fever/Mild Pain (1-3) Hydrocodone Bitart/Acetaminophen ([place] 7.5/325) 1 tab PO Q4H PRN PRN Reason: Moderate Pain (4-6) Last Admin: 03/13/19 09:33 Dose: 1 tab Allopurinol (Zyloprim) 300 mg PO QAM [facility] Aspirin (Ecotrin) 81 mg PO BID [facility] Atorvastatin Calcium (Lipitor) 40 mg PO HS [facility] Dextrose/Water (Dextrose 50%) 25 gm SLOW IVP PRN PRN PRN Reason: Hypoglycemia Famotidine (Pepcid) 20 mg PO BID [facility] Glipizide (Glucotrol) 5 mg PO DAILY-AC [facility] Glucagon (Glucagon) 1 mg IM PRN PRN PRN Reason: Hypoglycemia Heparin Sodium (Porcine) (Heparin) 5,000 units SC TID [facility] Last Admin: 03/13/19 09:24 Dose: 5,000 units Dextrose/Water (D5w) 1,000 mls @ 0 mls/hr IV .Q0M PRN PRN Reason: Hypoglycemia Insulin Human Lispro (Humalog) 0 units SC .MILD SLIDING SCALE PRN PRN Reason: Mild Correctional Scale Metformin HCl (Glucophage) 850 mg PO DAILY [facility] Metoprolol Tartrate (Lopressor) 25 mg PO BID [facility] Morphine Sulfate (Morphine) 2 mg SLOW IVP NOW [facility] Stop: 03/13/19 14:00 Last Admin: 03/13/19 12:08 Dose: 2 mg Morphine Sulfate (Morphine) 4 mg SLOW IVP Q4H PRN PRN Reason: Pain Ranolazine (Ranexa) 1,000 mg PO BID [facility] Senna/Docusate Sodium (Senokot S) 2 tab PO BIDPRN PRN PRN Reason: Constipation
[2019-03-13] MEDS: Famotidine 20 MG TAB PO SCH ×2 (14:16→20:48)
[2019-03-13] MEDS: Dexamethasone 4 mg/ml Vial SLOW IVP SCH ×2 (17:29→23:52)
[2019-03-13] MEDS: Aspirin 81 mg Enteric Coated Tablet PO SCH (20:47)
[2019-03-13] MEDS: Atorvastatin Calcium 40 MG TAB PO SCH (20:47)
[2019-03-13] MEDS: Lisinopril 10 MG TAB PO SCH (20:48)
[2019-03-13] MEDS: Metoprolol Tartrate 25 MG TAB PO SCH (20:48)
--- NOTE | 2019-03-13 20:50 | CT ---
EXAM: CTA neck with contrast HISTORY: Right carotid stenosis seen on ultrasound COMPARISON: Carotid ultrasound 03/13/2019 TECHNIQUE: Multiple contiguous axial images were obtained and a CTA of the neck with contrast. 3-D sagittal and coronal MIP reformats were performed. FINDINGS: CTA NECK: Aortic arch: Normal origin of the carotid arteries from the arch. No significant atherosclerotic dise ase of the subclavian arteries. Right common carotid artery: Moderate calcified plaque at the bifurcation. Left common carotid artery: Moderate calcified plaque at the bifurcation Right internal carotid artery: Heavily calcified plaque in the proximal aspect. Greater than 90% sten osis per NASCET criteria Right external carotid artery: No significant atherosclerotic disease or narrowing Left internal carotid artery: Moderate calcified plaque in the proximal aspect. Less than 10% stenosi s per NASCET criteria Left external carotid artery: No significant atherosclerotic disease or narrowing The right vertebral artery is dominant. Right cervical vertebral artery: No significant atherosclerotic disease or narrowing Left cervical vertebral artery: No significant atherosclerotic disease or narrowing No cervical adenopathy. The lung apices are unremarkable. The osseous structures are unremarkable. IMPRESSION: Greater than 90% stenosis of the right internal carotid artery.
[2019-03-13] MEDS ORDERED: HumaLOG 300 UNITS/3 ML VIAL SC PRN (21:06)
--- NOTE | 2019-03-13 23:28 | CON ---
DATE OF CONSULTATION: HISTORY OF PRESENT ILLNESS: This is a 58-year-old gentleman admitted after passing out while working outside of his truck. 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 He bent down to pick something up, and when he stood up and looked up, he lost consciousness. He evidently suffered an anterior lip fracture of the L1 vertebral body and had significant pain yesterday. As part of his evaluation, a carotid ultrasound was done demonstrating velocities of about 320 cm/sec on the right internal carotid artery. He has not ever had his carotid arteries evaluated by his account. PAST MEDICAL HISTORY: Includes diabetes mellitus, and he is unsure as to what A1c level has been recently. He admits though to eating pretty much whatever he wants. He has hypertension, dyslipidemia, and tobacco abuse with the patient being a dipper. He is also morbidly obese with a BMI of 39.5. PAST SURGICAL HISTORY: Includes coronary bypass grafting x3 in [place], [place] in 2005. He then underwent some sort of cardiac stenting about [address] Aguilar. According to Dr. Erwin's records from previous admission, he had an occluded mid LAD with a patent SALCEDO distally, chronically occluded right graft with the right filling from the SALCEDO collaterals. His circumflex had an occluded graft. It is unclear which vessel was stented and he had about a 40% left main. MEDICATIONS: Prior to admission included; 1. Ranexa 1000 b.i.d. 2. Ranitidine 150 b.i.d. 3. Aspirin 81 daily. 4. Metoprolol 25 b.i.d. 5. Glucophage 850 a day. 6. Lisinopril 10 b.i.d. 7. Imdur 60 daily. 8. HCTZ recent addition to his medical regimen at 0.5 mg a day for edema. 9. Glipizide 5 mg a day. 10. Atorvastatin, dose unknown. He takes half tablet a day. 11. Allopurinol 300 a day. ALLERGIES: NONE KNOWN. LABORATORY VALUES: Creatinine 0.99. Hemoglobin 12.9. PHYSICAL EXAMINATION: VITAL SIGNS: Blood pressure recorded is 140/64, height 5 feet 10 inches, weight 274. NECK: No carotid bruits. LUNGS: Clear to auscultation anteriorly. CARDIAC: Regular rate and rhythm. No murmurs. ABDOMEN: Obese, such that organomegaly or aneurysm could not be assessed. EXTREMITIES: He has no edema at this time with a palpable posterior tibial pulse in both feet. No dorsalis pedis pulse. I have gone over the options with the patient. If he wishes to continue with his [facility], he could obtain an outpatient CT angiogram at the [facility]. Due to his back fracture, he is expecting to be down for a while and would prefer to get evaluated here for his carotid disease. I will order a CTA, hold his metformin, and then if he needs surgical intervention, can do that at a separate admission. Job ID: [id number]
--- NOTE | 2019-03-14 05:12 | CON ---
DATE OF CONSULTATION: HISTORY OF PRESENT ILLNESS: Mr. Koch was brought to the emergency department on 03/12, following a syncopal episode while at work. He was getting out of his truck and moving some hook, bent down to pick one up, got lightheaded as he was trying to hook it above his head and hit the ground. He was found lying on his right side next to his truck. There is no neck pain, but there is back pain. He had severe back pain, brought to the emergency department for workup for syncope. CT scan of the lumbar spine shows an L1 compression fracture and Neurosurgery was consulted, as they enter the patient's hospital room, he is resting comfortably. He is easily arousable. He has back pain, but no radicular pain. No numbness or tingling in arms or legs. He states that on occasion even before this incident he would get tingling in his fingertips and his toes, and he is unsure of why this happened. The patient is moving all 4 extremities well. He has normal range of motion. Normal strength bilaterally. Alert and oriented x4. Speech is spontaneous and fluent. No neuro deficits are noted. REVIEW OF SYSTEMS: A 10-point review of systems has been completed and is negative other than stated in the above HPI. ALLERGIES: NO KNOWN DRUG ALLERGIES. PAST MEDICAL HISTORY: 1. Diabetes type 2. 2. Hyperlipidemia. 3. Hypertension. 4. History of malignancy in his testicles and was treated with chemotherapy, radiation, and surgery. 5. Obesity. 6. Gout. PAST SURGICAL HISTORY: Right testicle removed, coronary artery bypass graft, 3 vessel stents placed. SOCIAL HISTORY: The patient drinks socially, but rarely. Denies alcohol. He is a former smoker. Currently uses dip. ALLERGIES: NO KNOWN DRUG ALLERGIES. MEDICATIONS: 1. Allopurinol. 2. Atorvastatin. 3. Fluticasone. 4. Glipizide. 5. Hydrochlorothiazide. 6. Isosorbide. 7. Lisinopril. 8. Metformin. 9. Metoprolol. 10. Ranitidine. 11. Ranexa. PHYSICAL EXAMINATION: VITAL SIGNS: Blood pressure 109/58, O2 saturation 94 on room air, respirations 20, pulse 73, temperature 97.4. CONSTITUTIONAL: Well-appearing, well-nourished, alert, obese, afebrile, hypotensive slightly and appears to be nontoxic. HEENT: Head is normocephalic and atraumatic. Pupils are equal, round, and reactive to light. Extraocular movements are intact. Hearing intact. Moist mucous membranes. RESPIRATORY: Normal work of breathing on room air. Symmetric chest rise. EXTREMITIES: The patient is moving all 4 extremities well. Normal range of motion. Normal sensation and 5/5 strength bilaterally in deltoids, biceps, triceps, damage appraiser strength, hip flexion, knee flexion, hip extension, knee extension, dorsiflexion, plantar flexion, and EHL. NEUROLOGIC: The patient has GCS of 15. Normal attention span. Speech is spontaneous and fluent. Concentration appropriate. Alert and oriented x3. There are no lateralizing motor or sensory deficits. IMAGING DATA: Lumbar CT shows L1 compression fracture. ASSESSMENT AND PLAN: Mr. Koch is a 58-year-old who has sustained an L1 compression fracture since there is no retropulsion, the patient is not having any neuro changes. There are no radicular symptoms or any back pain. Our recommendation is to put him in a TLSO when he is up and out of bed and this will help significantly with pain. He does not need to wear when he is sleeping or showering, and we will follow up with the patient on an outpatient basis. Any further questions, please contact Neurosurgery. Job ID: [id number]
[2019-03-14] MEDS: Dexamethasone 4 mg/ml Vial SLOW IVP SCH ×2 (05:23→11:49)
--- NOTE | 2019-03-14 06:06 | PRG ---
DATE OF SERVICE: 03/14/2019 Review of the patient's CT angiogram from yesterday evening suggests a 90% right internal carotid artery stenosis. In view of this finding, consideration may be given to repair this prior to discharge given the severity of the lesion even though it is asymptomatic. We will discuss with the patient later today. Job ID: [id number]
[2019-03-14] MEDS: Aspirin 81 mg Enteric Coated Tablet PO SCH ×2 (08:28→20:02)
[2019-03-14] MEDS: glipiZIDE 5 MG TAB PO SCH (08:28)
[2019-03-14] MEDS: Allopurinol 300 MG TAB PO SCH (08:28)
[2019-03-14] MEDS: Heparin 5,000 UNITS/ML VIAL SC SCH ×3 (08:29→20:01)
[2019-03-14] MEDS: Fish Oil 1,000 MG CAP PO SCH (08:29)
[2019-03-14] MEDS: Lisinopril 10 MG TAB PO SCH ×2 (08:30→20:01)
[2019-03-14] MEDS: Metoprolol Tartrate 25 MG TAB PO SCH ×2 (08:30→20:02)
[2019-03-14] MEDS: Famotidine 20 MG TAB PO SCH ×2 (08:31→20:03)
[2019-03-14] MEDS: HumaLOG 300 UNITS/3 ML VIAL SC PRN ×3 (08:32→18:17)
[2019-03-14] MEDS ORDERED: metFORMIN 850 MG TAB PO SCH (09:00)
[2019-03-14] MEDS: Fluticasone Propionate Nasal Spray 16 gm Bottle NASAL SCH (10:15)
[2019-03-14] MEDS: Cholecalciferol (Vitamin D3) 400 UNITS TAB PO SCH (10:15)
[2019-03-14] MEDS: HYDROcodone/Acetaminophen 7.5/325 mg Tablet PO PRN ×2 (10:23→20:02)
[2019-03-14] MEDS: Insulin Glargine 8 UNITS in Pre-Filled Syringe 1 EACH SC SCH (11:48)
--- NOTE | 2019-03-14 14:30 | PDOC.PN ---
- Subjective Encounter Start Date: 03/14/19 Encounter Start Time: 10:30 Subjective: pt sitting up in bed, no complains - Objective Resuscitation Status - Order Detail: 03/12/19 20:15 Resuscitation Status Routine Resuscitation Status: FULL: Full Resuscitation Vital Signs & Weight: Vital Signs (12 hours) Temp Pulse Pulse Pulse Resp BP BP 03/14/19 13:40 68 73 113/57 L 105/54 L 03/14/19 12:00 03/14/19 11:56 98.1 F 66 18 03/14/19 07:55 03/14/19 07:50 97.6 F 64 18 03/14/19 03:34 97.8 F 66 18 BP BP BP Pulse Ox 03/14/19 13:40 03/14/19 12:00 93 L 03/14/19 11:56 111/58 L 93 L 03/14/19 07:55 120/61 118/59 L 135/75 03/14/19 07:50 120/61 96 03/14/19 03:34 120/60 97 Weight Weight 272 lb 8 oz I&O: 03/13/19 03/14/19 03/15/19 06:59 06:59 06:59 Intake Total 240 770 480 Output Total 500 1450 Balance -260 -680 480 Result Diagrams: 03/13/19 05:48 03/13/19 05:48 Additional Labs: Accuchecks 03/14/19 03/14/19 03/13/19 10:59 05:23 20:12 POC Glucose 250 H 245 H 323 H 03/13/19 03/13/19 18:30 17:04 POC Glucose 286 H 301 H Phys Exam - Physical Examination Neck: no nodes, no JVD, supple, full ROM Respiratory: no wheezing, no rales, no rhonchi, wheezing present, clear to auscultation bilateral Cardiovascular: RRR, no significant murmur, no rub, gallop, irregular Gastrointestinal: soft, non-tender, no distention, positive bowel sounds Dx/Plan (1) Syncope Code(s): R55 - SYNCOPE AND COLLAPSE Status: Acute (2) Coronary artery disease Code(s): I25.10 - ATHSCL HEART DISEASE OF [place] CORONARY ARTERY W/O ANG PCTRS Status: Acute (3) DM type 2 (diabetes mellitus, type 2) Status: Acute (4) Gout Code(s): M10.9 - GOUT, UNSPECIFIED Status: Acute (5) HTN (hypertension) Code(s): I10 - ESSENTIAL (PRIMARY) HYPERTENSION Status: Acute (6) Carotid stenosis Code(s): I65.29 - OCCLUSION AND STENOSIS OF UNSPECIFIED CAROTID ARTERY Status : Acute - Plan PT/OT pt seen by CV surgery will need surgery -: pt to get brace, on steroids. will add lantus for elevated sugar -: i did discuss this with pt that lantus is temporary -: will switch steroids to oral * . Review of Systems - Review of Systems Respiratory: negative: Cough, Dry, Shortness of Breath, Hemoptysis, SOB with Excertion, Pleuritic Pain, Sputum, Wheezing Cardiovascular: negative: chest pain, palpitations, orthopnea, paroxysmal nocturnal dyspnea, edema, light headedness, other Gastrointestinal: negative: Nausea, Vomiting, Abdominal Pain, Diarrhea, Constipation, Melena, Hematochezia, Other - Medications/Allergies Allergies/Adverse Reactions: Allergies Allergy/AdvReac Type Severity Reaction Status Date / Time No Known Allergies Allergy Verified 03/12/19 22:34 Medications: Current Medications Acetaminophen (Tylenol) 650 mg PO Q4H PRN PRN Reason: Headache/Fever/Mild Pain (1-3) Hydrocodone Bitart/Acetaminophen ([place] 7.5/325) 1 tab PO Q4H PRN PRN Reason: Moderate Pain (4-6) Last Admin: 03/14/19 10:23 Dose: 1 tab Allopurinol (Zyloprim) 300 mg PO QAM [facility] Last Admin: 03/14/19 08:28 Dose: 300 mg Aspirin (Ecotrin) 81 mg PO BID [facility] Last Admin: 03/14/19 08:28 Dose: 81 mg Atorvastatin Calcium (Lipitor) 40 mg PO HS [facility] Last Admin: 03/13/19 20:47 Dose: 40 mg Cholecalciferol (Vitamin D) 400 units PO DAILY [facility] Last Admin: 03/14/19 10:15 Dose: 400 units Dexamethasone (Decadron) 4 mg SLOW IVP Q6HR [facility] Last Admin: 03/14/19 11:49 Dose: 4 mg Dextrose/Water (Dextrose 50%) 25 gm SLOW IVP PRN PRN PRN Reason: Hypoglycemia Famotidine (Pepcid) 20 mg PO BID [facility] Last Admin: 03/14/19 08:31 Dose: 20 mg Fish Oil (Fish Oil) 2,000 mg PO DAILY [facility] Last Admin: 03/14/19 08:29 Dose: 2,000 mg Fluticasone Propionate (Flonase Nasal [place]) 0 gm NASAL DAILY [facility] Last Admin: 03/14/19 10:15 Dose: 1 spr Glipizide (Glucotrol) 5 mg PO DAILY-AC [facility] Last Admin: 03/14/19 08:28 Dose: 5 mg Glucagon (Glucagon) 1 mg IM PRN PRN PRN Reason: Hypoglycemia Heparin Sodium (Porcine) (Heparin) 5,000 units SC TID [facility] Last Admin: 03/14/19 14:15 Dose: 5,000 units Dextrose/Water (D5w) 1,000 mls @ 0 mls/hr IV .Q0M PRN PRN Reason: Hypoglycemia Insulin Glargine 8 units/ (Miscellaneous Medication) 0.08 mls @ 0 mls/[facility] Last Admin: 03/14/19 11:48 Dose: 0.08 mls Insulin Human Lispro (Humalog) 0 units SC .MILD SLIDING SCALE PRN PRN Reason: Mild Correctional Scale Last Admin: 03/14/19 11:49 Dose: 3 unit Insulin Human Lispro (Humalog) 0 units SC .BEDTIME SLIDING SC PRN PRN Reason: Bedtime Correctional Scale Last Admin: 03/13/19 21:18 Dose: 4 units Isosorbide Mononitrate (Imdur) 60 mg PO QAM [facility] Last Admin: 03/14/19 08:30 Dose: 60 mg Lisinopril (Zestril) 10 mg PO BID [facility] Last Admin: 03/14/19 08:30 Dose: 10 mg Metoprolol Tartrate (Lopressor) 25 mg PO BID [facility] Last Admin: 03/14/19 08:30 Dose: 25 mg Morphine Sulfate (Morphine) 4 mg SLOW IVP Q4H PRN PRN Reason: Pain Ranolazine (Ranexa) 1,000 mg PO BID [facility] Last Admin: 03/14/19 08:30 Dose: 1,000 mg Senna/Docusate Sodium (Senokot S) 2 tab PO BIDPRN PRN PRN Reason: Constipation
[2019-03-14] MEDS ORDERED: Dexamethasone 1 MG TAB PO SCH (17:00)
[2019-03-14] MEDS: Atorvastatin Calcium 40 MG TAB PO SCH (20:01)
[2019-03-15] MEDS: HYDROcodone/Acetaminophen 7.5/325 mg Tablet PO PRN ×2 (05:34→17:31)
[2019-03-15] MEDS: Insulin Glargine 8 UNITS in Pre-Filled Syringe 1 EACH SC SCH (09:09)
[2019-03-15] MEDS: HumaLOG 300 UNITS/3 ML VIAL SC PRN ×2 (09:10→13:00)
[2019-03-15] MEDS: Aspirin 81 mg Enteric Coated Tablet PO SCH ×2 (09:13→20:26)
[2019-03-15] MEDS: glipiZIDE 5 MG TAB PO SCH (09:13)
[2019-03-15] MEDS: Fish Oil 1,000 MG CAP PO SCH (09:14)
[2019-03-15] MEDS: Lisinopril 10 MG TAB PO SCH ×2 (09:14→20:29)
[2019-03-15] MEDS: Allopurinol 300 MG TAB PO SCH (09:15)
[2019-03-15] MEDS: Cholecalciferol (Vitamin D3) 400 UNITS TAB PO SCH (09:15)
[2019-03-15] MEDS: Fluticasone Propionate Nasal Spray 16 gm Bottle NASAL SCH (09:16)
[2019-03-15] MEDS: Famotidine 20 MG TAB PO SCH ×2 (09:16→20:28)
[2019-03-15] MEDS: Heparin 5,000 UNITS/ML VIAL SC SCH ×3 (09:17→20:28)
--- NOTE | 2019-03-15 09:57 | PQF ---
LORETTA QUINN KARISHMA [id number] CLINICAL DOCUMENTATION IMPROVEMENT CLARIFICATION FORM: ICD-10 Updated PLEASE DO AN ADDENDUM TO THE PROGRESS NOTE WITH ANY DOCUMENTATION UPDATES OR ADDITIONS AND CARRY THROUGH TO DC SUMMARY. THANK YOU. DATE: 03-15-19 ATTN: DR. OLIVARES Please exercise your independent, professional judgment in responding to the clarification form. Clinical indicators are provided on the bottom of this form for your review Please check appropriate box(s): Syncope Due to: [ ] Dehydration [ x] Orthostatic Hypotension [ ] Carotid Artery Stenosis [ ] Cardiac Arrhythmia - Type II Block [ ] Other diagnosis [ ] Unable to determine For continuity of documentation, please document condition throughout progress notes and discharge summary. Thank You. CLINICAL INDICATORS - SIGNS / SYMPTOMS / LABS ED: * SYNCOPE; L1 FX * SBP 101-125 DBP 51-72; P 67-84; RR 15-20; T 97.5 ORAL * EKG - TYPE 2 BLOCK 7-1 H&P (ELISE): SYNCOPE, COULD BE 2/2 ORTHOSTATIC VS DEHYDRATION VS CARDIAC NATURE 7-2 (AISLINN): BEND DOWN TO PICK SOMETHING UP, WHEN HE STOOD UP AND LOOKED UP, HE LOST CONSCIOUSNESS - SUFFERED L1 VERTEBRAL BODY FX 7-3 (AISLINN); 90% RIGHT INTERNAL CAROTID ARTERY STENOSIS RISK FACTORS 7-1 H&P (ELISE): CAD W/ HX CABG & STENTS; HLD; HTN; DM TREATMENTS CARDIAC MONITORING 7-1 TO 7-4 7-[address] - NO ABNORMALITY DEMONSTRATED 7-1 LUMBAR/THORACIC SPINE CT - L1 COMPRESSION FX 7-2 CT ANGIOGRAPHY - GREATER THAN 90% STENOSIS OF RIGHT INTERNAL CAROTID ARTERY 7-2 CAROTID DOPPLER - GREATER THAN 70% STENOSIS INVOLVING RIGHT INTERNAL CAROTID ARTERY 7-2 [facility] CONSULT 7-2 NEURO CONSULT - L1 COMPRESSION FX- NO NEURO CHANGES - RECOMMEND TLSO ED: 1L NS; ZOFRAN; MORPHINE; NORCO Thank you, Roberta (This form is maintained as a part of the permanent medical record) 2014 [employer]. All Rights Reserved Roberta Cedeno RN, BS [email or web address] [facility]
[2019-03-15] MEDS ORDERED: Polyethylene Glycol 3350 17 GM Packet PO SCH (11:00)
[2019-03-15] MEDS ORDERED: Bisacodyl 5 MG TAB PO SCH (11:00)
--- NOTE | 2019-03-15 15:14 | PDOC.PN ---
- Subjective Encounter Start Date: 03/15/19 Encounter Start Time: 10:15 Subjective: pt up in bed feels well, walking with brace - Objective Resuscitation Status - Order Detail: 03/12/19 20:15 Resuscitation Status Routine Resuscitation Status: FULL: Full Resuscitation Vital Signs & Weight: Vital Signs (12 hours) Temp Pulse Resp BP BP Pulse Ox 03/15/19 09:14 106/60 03/15/19 08:00 97.5 F L 69 16 109/60 98 03/15/19 03:49 97.5 F L 56 L 18 102/52 L 96 Weight Weight 273 lb 8 oz I&O: 03/14/19 03/15/19 03/16/19 06:59 06:59 06:59 Intake Total 770 1710 360 Output Total 1450 1100 Balance -680 610 360 Result Diagrams: 03/13/19 05:48 03/13/19 05:48 Additional Labs: Accuchecks 03/15/19 03/15/19 03/14/19 11:04 05:35 20:46 POC Glucose 162 H 182 H 236 H 03/14/19 17:04 POC Glucose 219 H Phys Exam - Physical Examination Neck: no nodes, no JVD, supple, full ROM Respiratory: no wheezing, no rales, no rhonchi, wheezing present, clear to auscultation bilateral Cardiovascular: RRR, no significant murmur, no rub, gallop, irregular Gastrointestinal: soft, non-tender, no distention, positive bowel sounds Musculoskeletal: no edema, pulses present, edema present Dx/Plan (1) Syncope Code(s): R55 - SYNCOPE AND COLLAPSE Status: Acute (2) Coronary artery disease Code(s): I25.10 - ATHSCL HEART DISEASE OF [place] CORONARY ARTERY W/O ANG PCTRS Status: Acute (3) DM type 2 (diabetes mellitus, type 2) Status: Acute (4) Gout Code(s): M10.9 - GOUT, UNSPECIFIED Status: Acute (5) HTN (hypertension) Code(s): I10 - ESSENTIAL (PRIMARY) HYPERTENSION Status: Acute (6) Carotid stenosis Code(s): I65.29 - OCCLUSION AND STENOSIS OF UNSPECIFIED CAROTID ARTERY Status : Acute - Plan pt up ambulating without any problems -: pt had a cath this year indicated severe [place] moderate cad to LAD and LCX -: will continue to lower steroids. pt going for endarterectomy in am * . Review of Systems - Review of Systems Respiratory: negative: Cough, Dry, Shortness of Breath, Hemoptysis, SOB with Excertion, Pleuritic Pain, Sputum, Wheezing Cardiovascular: negative: chest pain, palpitations, orthopnea, paroxysmal nocturnal dyspnea, edema, light headedness, other Gastrointestinal: negative: Nausea, Vomiting, Abdominal Pain, Diarrhea, Constipation, Melena, Hematochezia, Other - Medications/Allergies Allergies/Adverse Reactions: Allergies Allergy/AdvReac Type Severity Reaction Status Date / Time No Known Allergies Allergy Verified 03/12/19 22:34 Medications: Current Medications Acetaminophen (Tylenol) 650 mg PO Q4H PRN PRN Reason: Headache/Fever/Mild Pain (1-3) Hydrocodone Bitart/Acetaminophen ([place] 7.5/325) 1 tab PO Q4H PRN PRN Reason: Moderate Pain (4-6) Last Admin: 03/15/19 05:34 Dose: 1 tab Allopurinol (Zyloprim) 300 mg PO QAM [facility] Last Admin: 03/15/19 09:15 Dose: 300 mg Aspirin (Ecotrin) 81 mg PO BID [facility] Last Admin: 03/15/19 09:13 Dose: 81 mg Atorvastatin Calcium (Lipitor) 40 mg PO HS [facility] Last Admin: 03/14/19 20:01 Dose: 40 mg Cholecalciferol (Vitamin D) 400 units PO DAILY [facility] Last Admin: 03/15/19 09:15 Dose: 400 units Dextrose/Water (Dextrose 50%) 25 gm SLOW IVP PRN PRN PRN Reason: Hypoglycemia Famotidine (Pepcid) 20 mg PO BID [facility] Last Admin: 03/15/19 09:16 Dose: 20 mg Fish Oil (Fish Oil) 2,000 mg PO DAILY [facility] Last Admin: 03/15/19 09:14 Dose: 2,000 mg Fluticasone Propionate (Flonase Nasal [place]) 0 gm NASAL DAILY [facility] Last Admin: 03/15/19 09:16 Dose: 1 spr Glipizide (Glucotrol) 5 mg PO DAILY-AC [facility] Last Admin: 03/15/19 09:13 Dose: 5 mg Glucagon (Glucagon) 1 mg IM PRN PRN PRN Reason: Hypoglycemia Heparin Sodium (Porcine) (Heparin) 5,000 units SC TID [facility] Stop: 03/15/19 21:00 Last Admin: 03/15/19 14:42 Dose: 5,000 units Dextrose/Water (D5w) 1,000 mls @ 0 mls/hr IV .Q0M PRN PRN Reason: Hypoglycemia Insulin Glargine 8 units/ (Miscellaneous Medication) 0.08 mls @ 0 mls/hr SC QAM [facility] Last Admin: 03/15/19 09:09 Dose: 0.08 mls Insulin Human Lispro (Humalog) 0 units SC .MILD SLIDING SCALE PRN PRN Reason: Mild Correctional Scale Last Admin: 03/15/19 13:00 Dose: 2 unit Insulin Human Lispro (Humalog) 0 units SC .BEDTIME SLIDING SC PRN PRN Reason: Bedtime Correctional Scale Last Admin: 03/13/19 21:18 Dose: 4 units Isosorbide Mononitrate (Imdur) 60 mg PO QAM [facility] Last Admin: 03/14/19 08:30 Dose: 60 mg Lisinopril (Zestril) 10 mg PO BID [facility] Last Admin: 03/15/19 09:14 Dose: 10 mg Metoprolol Tartrate (Lopressor) 25 mg PO BID [facility] Last Admin: 03/14/19 20:02 Dose: 25 mg Morphine Sulfate (Morphine) 4 mg SLOW IVP Q4H PRN PRN Reason: Pain Polyethylene Glycol (Miralax) 17 gm PO DAILY [facility] Ranolazine (Ranexa) 1,000 mg PO BID [facility] Last Admin: 03/15/19 09:15 Dose: 1,000 mg Senna/Docusate Sodium (Senokot S) 2 tab PO BIDPRN PRN PRN Reason: Constipation Last Admin: 03/15/19 05:37 Dose: 2 tab
[2019-03-15] MEDS: Atorvastatin Calcium 40 MG TAB PO SCH (20:28)
[2019-03-15] MEDS ORDERED: Milk Of Magnesia 30 ML UDCUP PO PRN (20:51)
[2019-03-16 06:15] LABS: #Eosinphils 0.1 thou/uL (0.0-0.7); #Lymphocytes 2.5 thou/uL (1.20-3.40); #Monocytes 0.9 thou/uL (0.11-0.59); #Neutrophils 5.8 thou/uL (1.40-6.50); %Basophils 0.2 % (0.0-1.0); %Eosinophils 1.1 % (0.0-10.0); %Lymphocytes 27.1 % (21.0-51.0); %Monocytes 9.6 % (0.0-10.0); Hemoglobin 13.4 g/dL (14.0-18.0); Mean Corpuscular HGB CONC 34.4 g/dL (32.0-36.0); Mean Corpuscular Hemoglobin 31.7 pg (27.0-31.0); Platelet Count 260 thou/uL (130-400); RBC Distribution Width 13.3 % (11.5-14.5); Red Blood Cell (RBC) Count 4.23 mill/uL (4.70-6.10); White Blood Cell (WBC) Count 9.3 thou/uL (4.8-10.8)
[2019-03-16 06:37] LABS: Anion Gap 15 mmol/L (10-20); BUN (Urea Nitrogen) 26 mg/dL (8.4-25.7); Calc. Creatinine Clearance 139 mL/min (70-130); Calcium 9.4 mg/dL (7.8-10.44); Carbon Dioxide 24 mmol/L (22-29); Chloride 103 mmol/L (98-107); Estimated GFR-MDRD 75; Glucose 133 mg/dL (70-105); Potassium 4.1 mmol/L (3.5-5.1); Sodium 138 mmol/L (136-145)
[2019-03-16] MEDS ORDERED: Heparin 5,000 UNITS/ML VIAL ONE (06:39)
[2019-03-16] MEDS ORDERED: Protamine Sulfate 50 MG/5 ML VIAL ONE (06:39)
[2019-03-16] MEDS: Morphine 4 MG/ML VIAL SLOW IVP PRN ×2 (07:44→16:24)
[2019-03-16] MEDS: Allopurinol 300 MG TAB PO SCH (07:50)
[2019-03-16] MEDS: Aspirin 81 mg Enteric Coated Tablet PO SCH ×2 (07:50→20:28)
[2019-03-16] MEDS: Lisinopril 10 MG TAB PO SCH ×2 (07:50→20:29)
[2019-03-16] MEDS: Famotidine 20 MG TAB PO SCH ×2 (07:50→20:28)
[2019-03-16] MEDS ORDERED: Fentanyl 250 MCG/5 ML VIAL ONE (09:50)
[2019-03-16] MEDS ORDERED: Ondansetron HCl/PF 4 MG/2 ML Vial IVP PRN (14:32)
[2019-03-16] MEDS ORDERED: Promethazine HCl 25 MG/ML VIAL SLOW IVP PRN (14:32)
[2019-03-16] MEDS ORDERED: Promethazine HCl 25 MG/ML VIAL IM PRN ×2 (14:32→18:19)
[2019-03-16] MEDS ORDERED: Fentanyl 100 MCG/2 ML VIAL ONE (14:54)
[2019-03-16] MEDS ORDERED: Ondansetron PF 4 MG/2 ML Vial ONE (15:06)
[2019-03-16] MEDS ORDERED: PHENYLEPHRINE-NS 100 MCG/ML 10 ML SYRINGE ONE (15:06)
[2019-03-16] MEDS ORDERED: PROPOFOL 200 MG/20 ML VIAL ONE (15:06)
[2019-03-16] MEDS ORDERED: Lidocaine 1% PF 5 ML VIAL ONE (15:06)
[2019-03-16] MEDS ORDERED: Heparin 10,000 UNITS/ 10 ML VIAL ONE (15:06)
[2019-03-16] MEDS ORDERED: Rocuronium Bromide 10 MG/ML (10ML VIAL) ONE (15:06)
[2019-03-16] MEDS ORDERED: ePHEDrine 50 MG/ML VIAL ONE (15:06)
[2019-03-16] MEDS ORDERED: Glycopyrrolate 0.2 MG/ML 5 ML SYRINGE ONE (15:06)
--- NOTE | 2019-03-16 15:25 | OP ---
DATE OF PROCEDURE: 03/16/2019 PREOPERATIVE DIAGNOSIS: Critical right carotid stenosis. PROCEDURE: Right carotid endarterectomy with bovine patch angioplasty. ANESTHESIA: General. ESTIMATED BLOOD LOSS: Less than 100. DESCRIPTION OF PROCEDURE: After adequate anesthesia had been obtained, a shoulder roll was placed and turned to the left. Ultrasound was used to guide for the incision. Incision was made, carried down through the platysma, rotating sternocleidomastoid muscle laterally. Access was quite poor due to the patient's very short and obese neck. Common carotid artery was isolated and dissection was carried distally and the internal carotid artery lay posterior to the external carotid artery. After controlling these two vessels, the patient was given 7500 units of heparin. Clamps were applied. Arteriotomy performed through a very stenotic plaque. A 10-[place] shunt was then placed and with the help of additional retraction, endarterectomy was performed with satisfactory tapering distally. Bovine patch was used to secure the arteriotomy and prior to completing suture line, the shunt was removed. Vessels back flushed and forward flushed and flow restored up the external and then internal carotid artery. Protamine was given to partially reverse the heparin and after obtaining good hemostasis, the wound was irrigated and closed in layers. The patient was to be taken to the recovery room in guarded condition. Job ID: [id number]
[2019-03-16] MEDS: Cholecalciferol (Vitamin D3) 400 UNITS TAB PO SCH (16:45)
[2019-03-16] MEDS: glipiZIDE 5 MG TAB PO SCH (16:45)
[2019-03-16] MEDS: Fluticasone Propionate Nasal Spray 16 gm Bottle NASAL SCH (16:46)
[2019-03-16] MEDS: Insulin Glargine 8 UNITS in Pre-Filled Syringe 1 EACH SC SCH (16:46)
[2019-03-16] MEDS: Fish Oil 1,000 MG CAP PO SCH (16:46)
[2019-03-16] MEDS ORDERED: Cyclobenzaprine 10 MG TAB PO PRN (16:59)
[2019-03-16] MEDS ORDERED: Ketorolac Tromethamine 60 MG/2 ML VIAL IM SCH (17:00)
[2019-03-16] MEDS: Polyethylene Glycol 3350 17 GM Packet PO SCH (17:20)
[2019-03-16] MEDS ORDERED: Ondansetron PF 4 MG/2 ML Vial IVP PRN (18:19)
[2019-03-16] MEDS ORDERED: Norepinephrine 8 MG/0.9% NS 250 ML IVPB PRN (18:19)
[2019-03-16] MEDS ORDERED: Sodium Chloride 0.9% 1,000 ML IV SCH (18:19)
[2019-03-16] MEDS ORDERED: Fentanyl 100 MCG/2 ML VIAL SLOW IVP PRN (18:19)
[2019-03-16] MEDS ORDERED: hydrALAZINE 20 MG/ML VIAL SLOW IVP PRN (18:19)
[2019-03-16] MEDS ORDERED: Acetaminophen 325 MG TAB PO PRN (18:19)
[2019-03-16] MEDS ORDERED: HYDROcodone/Acetaminophen 5/325 mg Tablet PO PRN ×2 (18:19)
[2019-03-16] MEDS ORDERED: Nitroglycerin 50 MG/250 ML BOT 250 ML IVPB PRN (18:19)
[2019-03-16] MEDS ORDERED: Norepinephrine 8 MG in Dextrose 5% in Water 242 ML IVPB PRN (18:23)
[2019-03-16] MEDS: HumaLOG 300 UNITS/3 ML VIAL SC PRN (19:20)
[2019-03-16] MEDS: CEFAZOLIN 2 GM in Premix Bag 1 BAG IVPB SCH (20:23)
[2019-03-16] MEDS: Atorvastatin Calcium 40 MG TAB PO SCH (20:28)
[2019-03-16 20:30] VITALS: BP 110/47
[2019-03-17] MEDS: CEFAZOLIN 2 GM in Premix Bag 1 BAG IVPB SCH ×2 (03:55→11:34)
[2019-03-17 04:20] LABS: #Eosinphils 0.1 thou/uL (0.0-0.7); #Lymphocytes 1.6 thou/uL (1.20-3.40); #Monocytes 0.7 thou/uL (0.11-0.59); #Neutrophils 5.2 thou/uL (1.40-6.50); %Basophils 0.2 % (0.0-1.0); %Eosinophils 1.5 % (0.0-10.0); %Lymphocytes 20.8 % (21.0-51.0); %Monocytes 8.8 % (0.0-10.0); %Neutrophils 68.7 % (42.0-75.0); Hemoglobin 11.7 g/dL (14.0-18.0); Mean Corpuscular HGB CONC 34.1 g/dL (32.0-36.0); Mean Corpuscular Hemoglobin 31.8 pg (27.0-31.0); Mean Corpuscular Volume 93.4 fL (78.0-98.0); Platelet Count 216 thou/uL (130-400); RBC Distribution Width 13.3 % (11.5-14.5); Red Blood Cell (RBC) Count 3.67 mill/uL (4.70-6.10); White Blood Cell (WBC) Count 7.6 thou/uL (4.8-10.8)
[2019-03-17 04:38] LABS: Anion Gap 12 mmol/L (10-20); BUN (Urea Nitrogen) 23 mg/dL (8.4-25.7); Calc. Creatinine Clearance 121 mL/min (70-130); Calcium 8.2 mg/dL (7.8-10.44); Carbon Dioxide 24 mmol/L (22-29); Chloride 105 mmol/L (98-107); Estimated GFR-MDRD 63; Glucose 143 mg/dL (70-105); Potassium 4.2 mmol/L (3.5-5.1); Sodium 137 mmol/L (136-145)
[2019-03-17] MEDS: Insulin Glargine 8 UNITS in Pre-Filled Syringe 1 EACH SC SCH (09:00)
[2019-03-17] MEDS ORDERED: Aspirin 81 mg Enteric Coated Tablet PO SCH (09:00)
[2019-03-17] MEDS: Famotidine 20 MG TAB PO SCH (09:45)
[2019-03-17] MEDS: glipiZIDE 5 MG TAB PO SCH (09:51)
[2019-03-17] MEDS: Fish Oil 1,000 MG CAP PO SCH (09:51)
[2019-03-17] MEDS: Polyethylene Glycol 3350 17 GM Packet PO SCH (09:51)
[2019-03-17] MEDS: Lisinopril 10 MG TAB PO SCH (09:52)
[2019-03-17] MEDS: Fluticasone Propionate Nasal Spray 16 gm Bottle NASAL SCH (09:52)
[2019-03-17] MEDS: Allopurinol 300 MG TAB PO SCH (11:36)
[2019-03-17] MEDS: Cholecalciferol (Vitamin D3) 400 UNITS TAB PO SCH (11:36)
[2019-03-17] MEDS: HumaLOG 300 UNITS/3 ML VIAL SC PRN ×2 (11:49→16:20)
[2019-03-17 18:02] VITALS: TEMP 98.4
--- NOTE | 2019-03-17 21:10 | EKG ---
Test Reason : SYNCOPE Blood Pressure : / mmHG Vent. Rate : 062 BPM Atrial Rate : 062 BPM P-R Int : 142 ms QRS Dur : 108 ms QT Int : 440 ms P-R-T Axes : 048 052 077 degrees QTc Int : 446 ms Normal sinus rhythm with sinus arrhythmia Incomplete right bundle branch block Nonspecific ST and T wave abnormality Abnormal ECG Confirmed by MARYBETH RASMUSSEN ([id number]), video tape editor RYAN MARQUEZ ([id number]) on 03/17/2019 9:10:07 PM Referred By: Confirmed By:MARYBETH RASMUSSEN
--- NOTE | 2019-03-17 21:24 | DIS ---
DATE OF ADMISSION: 03/12/2019 DATE OF DISCHARGE: 03/17/2019 DISCHARGE DIAGNOSES: 1. Syncope, most likely secondary to vasovagal. 2. Right-sided carotid stenosis, status post right-sided carotid endarterectomy with bovine patch angioplasty done on 03/16. 3. L1 endplate comminuted fracture. 4. History of hypertension and diabetes. HOSPITAL COURSE: The patient is a 58-year-old male who initially presented to the hospital with a syncopal episode. The patient at that time had positive orthostatic blood pressures. At that time, he had a workup of echocardiogram and a carotid Doppler. The carotid Doppler did indicate a right-sided significant stenosis of 70% to 80%. At this time, CV Surgery was consulted, who did a CTA which indicated greater than 90% stenosis on the right side. At this time, he did undergo an endarterectomy with a bovine patch angioplasty of the right carotid. The patient also was seen by Neurosurgery who recommended a TLSO brace, which was given to the patient. The patient has been able to ambulate with it. He is supposed to follow up with Neurosurgery as an outpatient. Also, he denied any numbness or tingling in his lower extremities or any weakness. He has been ambulating. The patient had an echocardiogram, however the results are pending. The patient will be discharged home. He will follow up with his primary care doctor and also Neurosurgery and CV Surgery. MEDICATIONS: 1. Tylenol with codeine which is new one p.o. q.6 hours p.r.n. for pain. 2. Allopurinol 300 mg q.a.m. 3. Atorvastatin 50 mg at bedtime. 4. Glipizide 5 mg daily a.c. 5. Isosorbide 60 mg daily. 6. Lisinopril 10 mg b.i.d. 7. Metformin 850 daily. 8. Metoprolol 25 mg b.i.d. 9. Aspirin 81 mg daily. 10. Ranitidine 150 mg b.i.d. 11. Ranexa 1000 mg b.i.d. Also, I ordered vitamin D 1000 p.o. daily. Also, I discontinued his hydrochlorothiazide, since I did feel that he took all his blood pressure medications in the morning and probably went down to picker tender helper something from the floor and when he stood up that is probably when he had a syncopal episode due to vasovagal and loss of his blood pressure. PHYSICAL EXAMINATION: VITAL SIGNS: Temperature 98.8, blood pressure 128/49, 96% on room air, 75 heart rate. GENERAL: He is awake, alert, and oriented x3. Does not appear in distress. CV: S1 and S2 present. No murmurs, rubs, gallops. ABDOMEN: Soft and nontender. Bowel sounds are present x2. EXTREMITIES: No edema. Again, the patient will be discharged home. He will follow up with his primary care, also the CV surgeon and also with Dr. Rios, who is a neurosurgeon for his L1 fracture. Job ID: [id number]
== END 2019-03-17 17:15 | disposition home or self-care (01) | DRG 253 ==
LOC: ERS 12:48 → OBSVTOIN 16:38 → ERHOLD 16:38 → 2NO 22:31 → CCU 03-16 11:31
PROVIDERS: ADMIT Internal Medicine; ATTEND Internal Medicine
PROC: 03CK0ZZ Extirpation of Matter from Right Internal Carotid Artery, Open Approach (ICD-10-PCS; principal; 2019-03-16)
PROC: 03UK0KZ Supplement Right Internal Carotid Artery with Nonautologous Tissue Substitute, Open Approach (ICD-10-PCS; 2019-03-16)
DX: I95.1 Orthostatic hypotension (principal); S32.018A Other fracture of first lumbar vertebra, initial encounter for closed fracture; Z68.41 Body mass index [BMI] 40.0-44.9, adult; I65.21 Occlusion and stenosis of right carotid artery; I10 Essential (primary) hypertension; E11.9 Type 2 diabetes mellitus without complications; E78.5 Hyperlipidemia, unspecified; E66.01 Morbid (severe) obesity due to excess calories; M10.9 Gout, unspecified; C62.90 Malignant neoplasm of unspecified testis, unspecified whether descended or undescended; Z95.1 Presence of aortocoronary bypass graft; Z87.891 Personal history of nicotine dependence; Z95.5 Presence of coronary angioplasty implant and graft; V69.9XXA Occupant (driver) (passenger) of heavy transport vehicle injured in unspecified traffic accident, initial encounter; Y92.9 Unspecified place or not applicable
CPT/HCPCS: 36415; 36416; 70450; 70498; 71045; 72128; 72131; 80048; 80053; 80306; 81003; 82306; 83605; 84484; 85025; 93005; 93306; 93880; 96361; 96374; 96375; J0690; J1100; J1642; J1644; J1815; J1885; J2001; J2270; J2405; J2704; J2720; J3010; J3490; J8540; Q9966

== ENCOUNTER 2019-04-10 10:24 | Outpatient (CLI) | payer BC ==
--- NOTE | 2019-04-10 10:58 | RAD ---
LUMBOSACRAL SPINE TWO VIEWS: INDICATIONS: Low back pain. COMPARISON: Prior lumbar spine CT dated 03/12/2019. FINDINGS: There is worsening loss of height involving the compression fracture at L1. There is approximately 6 6% loss of height involving the anterior and central aspect of the L1 vertebral body. There is multi level spondylosis of the thoracic spine. IMPRESSION: Worsening loss of height involving the L1 compression fracture. POS: TPC
== END 2019-04-10 10:25 | disposition home or self-care (01) ==
LOC: TBSIIMAG 10:24
PROVIDERS: ATTEND Neurological Surgery
DX: M54.5 Low back pain (principal); M48.56XA Collapsed vertebra, not elsewhere classified, lumbar region, initial encounter for fracture
CPT/HCPCS: 72100

== ENCOUNTER 2020-01-01 09:01 | Outpatient (CLI) | payer OTHER ==
--- NOTE | 2020-01-01 10:03 | CT ---
Exam: LUMBAR SPINE CT WITHOUT CONTRAST: COMPARISON: 03/12/2019. HISTORY: Assess compression fracture at L1. FINDINGS: Visualized paraspinal muscles and solid organs are grossly unremarkable. There is atherosclerosis of a nonaneurysmal aorta. There are 5 lumbar type vertebra. From L2 through L5, vertebral body height is maintained. There is n o fracture. Multilevel facet arthropathy is noted. No spondylolisthesis or spondylolysis. There is progression in terms of loss of vertebral body height at L1. There is vertebral plana along the anterior one third of the vertebral body. There is retropulsion which has also developed since the previous examination. Limited evaluation of the contents of the central spinal canal and neural foramina due to technique. T11-T12: No significant central canal stenosis. T12-L1: Mild central canal stenosis due to broad-based disc bulge. There is vacuum disc phenomenon. L1 vertebral body: Moderate central canal stenosis due to retropulsion. L1-L2: No significant central canal stenosis or significant neural foraminal narrowing. L2-L3: Mild central canal stenosis due to broad-based disc bulge. No significant neural foraminal eduarda rowing. L3-L4: Moderate central canal stenosis secondary to broad-based disc bulge, ligamentum flavum thicken ing and facet hypertrophy. Mild bilateral foraminal narrowing. L4-L5: Moderate to severe central canal stenosis secondary to broad-based disc bulge, ligamentum flav um thickening and facet hypertrophy. There is vacuum joint phenomenon in bilateral facet joints. Mild bilateral neural foraminal narrowing. L5-S1: Broad-based disc bulge contacts the left and right subarticular zone. There is minimal mass ef fect without obscuration of either traversing S1 nerve root. Bilaterally, neural foramina are patent. IMPRESSION: 1. Progression of loss of vertebral body height at L1. Currently, there is vertebral plana at the L1 vertebral body with retropulsion. There is moderate central canal stenosis secondary to retropulsion. 2. Varying degrees of central canal stenosis and foraminal narrowing as detailed above. The overall d egree of degenerative change is similar to the previous exam. Transcribed Date/Time: 01/01/2020 10:16 AM
== END 2020-01-01 09:02 | disposition home or self-care (01) ==
LOC: SCSCT 09:01
PROVIDERS: ATTEND Neurological Surgery
DX: S22.008A Other fracture of unspecified thoracic vertebra, initial encounter for closed fracture (principal); M48.061 Spinal stenosis, lumbar region without neurogenic claudication
CPT/HCPCS: 72131

== ENCOUNTER 2024-03-13 12:59 | Outpatient (CLI) | payer OTHER | END 2024-03-13 13:00 | disposition home or self-care (01) | LOC: BICMRI 12:59 | PROVIDERS: ATTEND Family Medicine | DX: M50.11 Cervical disc disorder with radiculopathy, high cervical region (principal); M50.121 Cervical disc disorder at C4-C5 level with radiculopathy; M50.122 Cervical disc disorder at C5-C6 level with radiculopathy | CPT/HCPCS: 72040; 72141 ==

== ENCOUNTER 2025-06-10 10:42 | Outpatient (CLI) | payer OTHER | END 2025-06-10 10:43 | disposition home or self-care (01) | LOC: ULT 10:42 | PROVIDERS: ATTEND Nurse Practitioner Family | DX: N50.812 Left testicular pain (principal) | CPT/HCPCS: 76870; 93976 ==